=== PATIENT | female | born 1980 | race Caucasian/White ===

== ENCOUNTER 2018-01-09 00:42 | Inpatient (IN) | payer OTHER ==
--- NOTE | 2018-01-07 17:47 | History & Physical Pre-Op ---
General Information and HPI History of Present Illness: 3Patient is a 37-year-old 2 para 1 AB 1 chronic menorrhagia and pelvic pain secondary to large fibroid uterus presents today for open myomectomy. The patient desires future fertility. She has had a previous open myomectomy and understands that hysterectomy is a potential complication of uncontrolled bleeding. She will have ureteral stents placed preoperatively Dr. Higgins. Allergies/Medications Allergies: Coded Allergies: No Known Allergies (01/07/18) Home Med list No Known Home Medications Past History Surgical History Pertinent Surgical History: Florin-thyroidectomy, myomectomy Review of Systems Review of Systems Constitutional: Reports: malaise, weakness. EENTM: Reports: no symptoms. Cardiovascular: Reports: no symptoms. Respiratory: Reports: no symptoms. GI: Reports: abdominal pain. Genitourinary: Reports: see HPI. Musculoskeletal: Reports: no symptoms. Skin: Reports: no symptoms. Neurological/Psychological: Reports: no symptoms. Hematologic/Endocrine: Reports: no symptoms. Immunologic/Allergic: Reports: no symptoms. All Other Systems: Reviewed and Negative Exam & Diagnostic Data Last 24 Hrs of Vital Signs/I&O Intake & Output 01/07 1600 01/07 0800 01/07 0000 Intake Total Output Total Balance Patient 175 lb Weight Physical Exam: HEENT: Normocephalic atraumatic Chest: Clear to auscultation bilaterally Cardiovascular: Normal S1, S2 Abdomen: Soft nontender uterus palpable just below the umbilicus Pelvic: 16 week size uterus Extremities: No clubbing cyanosis or edema Neurologic nonfocal Assessment/Plan Assessment/Plan: Fibroid uterus, symptomatic Plan: Open myomectomy As Ranked By This Provider Problem List: 1. Fibroid (bleeding) (uterine)
[~2018-01-09] VITALS: Ht 160 cm; Wt 84.4 kg
--- NOTE | 2018-01-09 10:55 | Operative Report ---
Operative/Inv Procedure Report Surgery Date: 01/09/18 Name of Procedure: cystoscopy: bilateral stent insertion Pre-Operative Diagnosis: fibroids Post-Operative Diagnosis: same Estimated Blood Loss: scant Surgeon/Patternmaker Plaster [employer] Plastic: MD Ronaldo, Bradley-urology Anesthesia: general endotracheal tube Drains: 6 fr youngblood Specimens: ucx Complications: none Operative/Procedure Note Note: The patient was taken to the operating room and placed on the OR table in supine position. Timeout was performed, with the patient awake, to confirm identify, planned procedures, anesthesia, antibiotics and other pertinent rey-operative information. After adequate anesthesia, and IV antibiotics, the patient was placed in lithotomy Yellow-fin stirrups. She was then draped and prepped in the usual surgical fashion, including a vaginal prep. A 22 [place] Ze[place]ander cystoscope sheath with a 30 angle lens was inserted into the bladder without significant difficulty. The bladder was thoroughly and systematically examined, and was noted to be free of tumor, free of stone, free of endometriosis. Both ureteral orifices were in their orthotopic positions with clear reflux bilaterally. Under direct visualization the left orifice was intubated with a 5 [place] Zealander whistle-tip catheter, which was advanced easily into the left kidney pelvis. The right ureteral orifice was intubated with a second 5 [place] ureteral whistle tip catheter, and advanced into the right renal pelvis without difficulty. For identification purposes the blue marked stent went into the left kidney and the right ureteral stent was marked red. Urine culture was obtained and sent to pathology. The cystoscope was then removed leaving both stents in proper place. An 18 [place]ander Youngblood catheter was inserted draining clear fluid and 10 mL of sterile water was then placed in the balloon. The ends ureteral stents, which protruded externally, were taped to the Youngblood catheter in order to secure their position. The individual ureteral stents were then connected to their individual drainage devices. The patient tolerated the procedure well. All sponge needle and instrument count were correct at the end of this procedure. The patient was then placed in supine position with Venodyne's in place. At this point, Dr.Vander Bolaños was able to proceed with the patient's surgery. Discharge Disposition: proceed with Dr. Zaarte CC: Bradley Higgins MD
[2018-01-09 11:21] LABS: ABSOLUTE BASOPHIL COUNT 0 /CUMM (0.0-0.2); ABSOLUTE EOSINOPHIL COUNT 0.1 /CUMM (0.0-0.7); ABSOLUTE GRANULOCYTE CT 14.1 /CUMM (1.4-6.5); ABSOLUTE LYMPH COUNT 1.9 /CUMM (1.2-3.4); ABSOLUTE MONOCYTE COUNT 0.4 /CUMM (0.10-0.60); BASOPHIL % 0.1 % (0.0-2.0); EOSINOPHIL % 0.3 % (0-5); GRANULOCYTE % 85.9 % (42.2-75.2); HEMATOCRIT 24.7 % (37-47); MEAN CORPUSCULAR HGB 22.9 PG (27.0-31.0); MEAN CORPUSCULAR HGB CONC 32.3 G/DL (33.0-37.0); MEAN CORPUSCULAR VOLUME 70.7 FL (81.0-99.0); MEAN PLATELET VOLUME 8.8 FL (7.4-10.4); PLATELET COUNT 268 /CUMM (130-400); RBC DISTRIBUTION WIDTH 19.5 % (11.5-14.5); WHITE BLOOD CELL COUNT 16.4 /CUMM (4.8-10.8)
--- NOTE | 2018-01-09 15:14 | Operative Report ---
Operative/Inv Procedure Report Surgery Date: 01/09/18 Name of Procedure: Multiple myomectomies Pre-Operative Diagnosis: Fibroid uterus Post-Operative Diagnosis: Same Estimated Blood Loss: 650 Surgeon/Community Organization Worker: Erwin Mcneill MD,Sudhakar Cabezas MD Anesthesia: general endotracheal tube Operative/Procedure Note Note: The patient was brought to the operating room and placed on the OR table in dorsal supine position. She was underwent general anesthetic and was intubated successfully. Betadine boots were placed prior to induction of anesthesia. She was prepped and draped in usual sterile fashion and a Wells catheter was inserted into the bladder draining clear yellow urine. An incision was made in the skin through the old Pfannenstiel scar this was taken down to the layer of the fascia. Fascia was nicked in the midline and extended bilaterally. The rectus muscles were sharply dissected off the overlying fascia. Rectus muscles were and the peritoneal cavity was entered sharply. A large 16-18 week size uterus was palpable and brought through the abdominal incision. 167 cm fibroid was noted on the posterior wall and the uterus was globally globally enlarged to approximately 16 weeks gestation normal ovaries and fallopian tubes bilaterally. The bladder was adhesed to the lower uterine segment and this was taken down sharply. Posterior fibroid was injected with Pitressin along the incision line. It was incised with the electrocautery and shelled out completely sharply and bluntly. The uterine cavity was entered at this point. Through the uterine cavity was noted that there was a large fibroid palpable. An incision was made in the fundus of the uterus anteriorly posteriorly and a large 12 cm fibroid was shelled out through different layers. There was bleeding as this was shelled out and layers of tissue were opened and cut. Once the fibroid was removed we could see normal uterine tissue. The layers of fibrosis tissue were excised as well. The remaining uterine wall was closed in layers and there were multiple kexhad-bo-phzdd sutures of 0 Polysorb used for hemostasis. Posterior wall was closed in similar fashion. The excess uterine tissue was excised and at the end of the case uterus was now approximately 12 weeks in size. Seprafilm was placed throughout the surgical field and the uterus was placed back into the abdominal cavity after copious irrigation was performed. Rectus muscles were reapproximated with one mattress suture of 0 Polysorb. The fascia was closed with #1 Polysorb in a running nonlocking fashion. Subcutaneous tissues were irrigated were needed and coagulated. The skin was closed using karan and dry sterile dressing was applied to the wound patient was then awakened and sent to recovery in good condition. All needle, sponge, and some counts were correct at the end of the procedure 2.
[2018-01-09 16:00] VITALS: BP 98/58
[2018-01-09 17:39] VITALS: BP 100/62
[2018-01-09 18:10] LABS: ABSOLUTE BASOPHIL COUNT 0 /CUMM (0.0-0.2); ABSOLUTE EOSINOPHIL COUNT 0 /CUMM (0.0-0.7); ABSOLUTE GRANULOCYTE CT 17.7 /CUMM (1.4-6.5); ABSOLUTE LYMPH COUNT 0.6 /CUMM (1.2-3.4); BASOPHIL % 0 % (0.0-2.0); EOSINOPHIL % 0 % (0-5); GRANULOCYTE % 91.6 % (42.2-75.2); HEMATOCRIT 23.1 % (37-47); MEAN CORPUSCULAR HGB 22.8 PG (27.0-31.0); MEAN CORPUSCULAR HGB CONC 31.8 G/DL (33.0-37.0); MEAN CORPUSCULAR VOLUME 71.6 FL (81.0-99.0); MEAN PLATELET VOLUME 8.4 FL (7.4-10.4); PLATELET COUNT 235 /CUMM (130-400); RBC DISTRIBUTION WIDTH 19.8 % (11.5-14.5); RED BLOOD CELL CT 3.23 /CUMM (4.20-5.40); WHITE BLOOD CELL COUNT 19.4 /CUMM (4.8-10.8)
[2018-01-09 19:30] VITALS: BP 114/66
[2018-01-09 21:30] VITALS: BP 110/70
[2018-01-09 21:50] LABS: ABSOLUTE BASOPHIL COUNT 0 /CUMM (0.0-0.2); ABSOLUTE EOSINOPHIL COUNT 0 /CUMM (0.0-0.7); ABSOLUTE GRANULOCYTE CT 8.3 /CUMM (1.4-6.5); ABSOLUTE LYMPH COUNT 0.5 /CUMM (1.2-3.4); ABSOLUTE MONOCYTE COUNT 0.7 /CUMM (0.10-0.60); BASOPHIL % 0 % (0.0-2.0); EOSINOPHIL % 0 % (0-5); GRANULOCYTE % 87.3 % (42.2-75.2); MEAN CORPUSCULAR HGB 22.7 PG (27.0-31.0); MEAN CORPUSCULAR HGB CONC 32.2 G/DL (33.0-37.0); MEAN CORPUSCULAR VOLUME 70.7 FL (81.0-99.0); MEAN PLATELET VOLUME 8.6 FL (7.4-10.4); PLATELET COUNT 212 /CUMM (130-400); RBC DISTRIBUTION WIDTH 19.4 % (11.5-14.5); WHITE BLOOD CELL COUNT 9.5 /CUMM (4.8-10.8)
[2018-01-09 22:07] LABS: HEMATOCRIT 19.8 % (37-47)
--- NOTE | 2018-01-09 22:50 | PN- OBGYN ---
Surgical Brief Attending Note Brief Attending Note: Seen and evaluated secondary to hematocrit of 19.8 Dr Booker signed this patient out to me at appx 1700 Reviewed patient chart as well. Patient is without complaint and other than being hungry states she is okay. Appears pale. T97.9 Pulse 70 and BP 110/70 Abdomen is soft with incisional tenderness and abdominal binder on. Minimal blood on vaginal pad. Wound dressing clean Extremities with alps on. Wells draining clear urine. Pod#0 s/p repeat multiple myomectomy on this patient with abnormal uterine bleeding-leiomyoma and chronic anemia. Heme. At present her hct today went from 24.7 to 23.1 to 19.8 over 9 hours. Her platelets are 212 at present. In my opinion this is surgical blood loss and not active bleeding. Her MCV is 70's. I reviewed with the patient the benefit of transfusion should she become unstable (resting tachycardia, dyspnea, decreased urine output, chest pain and or hypotension). Other options would be IV Venofer however that wont increase her HCT in the short term but would reduce her need for oral iron. She is declining transfusion at present but understands if tomorrow she is orthostatic she would need same. She will think about the transfusion though. CBC for 0600 on 01/11/20 and I will sign out to Dr Booker in the am. Alps for vte prophylaxis. She is tolerating clear liquids at present without nausea Treatment goals reviewed with patient and she shows understanding. Reviewed with Yue VIG[facility] on 2NA. They were informed to contact me with any change in patient status.
[2018-01-09 23:08] VITALS: BP 120/68
[2018-01-10] VITALS (9 sets, daily range): BP systolic 118–132; BP diastolic 68–82
[2018-01-10 09:24] LABS: ABSOLUTE BASOPHIL COUNT 0 /CUMM (0.0-0.2); ABSOLUTE EOSINOPHIL COUNT 0 /CUMM (0.0-0.7); ABSOLUTE LYMPH COUNT 0.9 /CUMM (1.2-3.4); BASOPHIL % 0 % (0.0-2.0); EOSINOPHIL % 0 % (0-5); MEAN CORPUSCULAR HGB 22.9 PG (27.0-31.0)
--- NOTE | 2018-01-10 09:43 | PN- General Surgery ---
Subjective Subjective: pt feels lightheaded but refuses transfusion at this time; denies flatus Objective Vital Signs and I&Os Vital Signs Date Time Temp Pulse Resp B/P B/P Pulse O2 O2 Flow FiO2 Mean Ox Delivery Rate 01/10 0615 97.6 100 20 132/74 93 Room Air 01/10 0600 98.5 100 20 120/78 01/10 0407 98.5 100 20 120/78 95 Room Air 01/10 0400 98.5 100 20 120/78 01/10 0210 97.9 105 20 120/82 94 Room Air 01/10 0200 97.9 105 20 120/80 01/10 0000 98.5 90 20 120/68 01/09 2308 98.5 90 20 120/68 97 Room Air 01/09 2130 97.9 70 20 110/70 99 Room Air 01/09 1930 98.0 73 20 114/66 98 Room Air 01/09 1739 94.0 77 20 100/62 99 Room Air 01/09 1600 Room Air 01/09 1600 95.6 85 20 98/58 01/09 1600 95.6 85 20 98/58 96 Room Air Intake & Output 01/10 1600 01/10 0800 01/10 0000 01/09 1600 01/09 0800 01/09 0000 Intake Total 1240 900 Output Total 550 350 Balance 690 550 Intake, IV 1000 500 Intake, Oral 240 400 Output, Urine 550 350 Patient 183 lb 161 lb Weight Weight Bed scale Measurement Method Physical Exam: Abd: soft NTND; incision c/d/i Ext NT Assessment/Plan Assessment/Plan s/p myomectomies pod1 with low H&H secondarty to intraop blood loss Priscilla d/c'd advance diet as kvng increase activity awaiting CBC encouraged pt to accept transfusion po pain meds Core Measures Venous Thromboembolism VTE Risk Factors Surgery No Mechanical VTE Prophylaxis d/t N/A MechProphylax Ordered No VTE Pharm Prophylaxis d/t Bleeding (Active)
[2018-01-10 09:44] LABS: ABSOLUTE GRANULOCYTE CT 4.8 /CUMM (1.4-6.5); ABSOLUTE MONOCYTE COUNT 0.7 /CUMM (0.10-0.60); GRANULOCYTE % 74.6 % (42.2-75.2); MEAN CORPUSCULAR HGB CONC 32.3 G/DL (33.0-37.0); MEAN CORPUSCULAR VOLUME 70.8 FL (81.0-99.0); MEAN PLATELET VOLUME 8.9 FL (7.4-10.4); PLATELET COUNT 187 /CUMM (130-400); RBC DISTRIBUTION WIDTH 19.9 % (11.5-14.5); RED BLOOD CELL CT 2.36 /CUMM (4.20-5.40); WHITE BLOOD CELL COUNT 6.4 /CUMM (4.8-10.8)
[2018-01-10 09:50] LABS: HEMATOCRIT 16.7 % (37-47)
--- NOTE | 2018-01-10 09:54 | PN- General Surgery ---
Subjective Subjective: same Review of Systems: same Objective Vital Signs and I&Os Vital Signs Date Time Temp Pulse Resp B/P B/P Pulse O2 O2 Flow FiO2 Mean Ox Delivery Rate 01/10 0615 97.6 100 20 132/74 93 Room Air 01/10 0600 98.5 100 20 120/78 01/10 0407 98.5 100 20 120/78 95 Room Air 01/10 0400 98.5 100 20 120/78 01/10 0210 97.9 105 20 120/82 94 Room Air 01/10 0200 97.9 105 20 120/80 09/ 0000 98.5 90 20 120/68 01/09 2308 98.5 90 20 120/68 97 Room Air 01/09 2130 97.9 70 20 110/70 99 Room Air 01/09 1930 98.0 73 20 114/66 98 Room Air 01/09 1739 94.0 77 20 100/62 99 Room Air 01/09 1600 Room Air 01/09 1600 95.6 85 20 98/58 01/09 1600 95.6 85 20 98/58 96 Room Air Intake & Output 01/10 1600 01/10 0800 01/10 0000 01/09 1600 01/09 0800 01/09 0000 Intake Total 1240 900 Output Total 550 350 Balance 690 550 Intake, IV 1000 500 Intake, Oral 240 400 Output, Urine 550 350 Patient 183 lb 161 lb Weight Weight Bed scale Measurement Method Physical Exam: same H/H = 5.4/16.7 Assessment/Plan Assessment/Plan post op bleed rec transfusiion pt now accepts transfusion Problem List: 1. Fibroid (bleeding) (uterine) Core Measures Venous Thromboembolism VTE Risk Factors Surgery No Mechanical VTE Prophylaxis d/t N/A MechProphylax Ordered No VTE Pharm Prophylaxis d/t Bleeding (Active)
[2018-01-11 01:32] LABS: ABSOLUTE BASOPHIL COUNT 0 /CUMM (0.0-0.2); ABSOLUTE EOSINOPHIL COUNT 0 /CUMM (0.0-0.7); ABSOLUTE GRANULOCYTE CT 6.4 /CUMM (1.4-6.5); ABSOLUTE LYMPH COUNT 1.4 /CUMM (1.2-3.4); ABSOLUTE MONOCYTE COUNT 0.8 /CUMM (0.10-0.60); BASOPHIL % 0.1 % (0.0-2.0); EOSINOPHIL % 0 % (0-5); HEMATOCRIT 21.1 % (37-47); MEAN CORPUSCULAR HGB CONC 33.9 G/DL (33.0-37.0); MEAN PLATELET VOLUME 8.7 FL (7.4-10.4); PLATELET COUNT 167 /CUMM (130-400); RBC DISTRIBUTION WIDTH 20.7 % (11.5-14.5); WHITE BLOOD CELL COUNT 8.7 /CUMM (4.8-10.8)
[2018-01-11 01:38] LABS: MEAN CORPUSCULAR HGB 25.5 PG (27.0-31.0); MEAN CORPUSCULAR VOLUME 75.3 FL (81.0-99.0)
[2018-01-11 06:05] VITALS: BP 120/84
[2018-01-11 08:31] LABS: ABSOLUTE BASOPHIL COUNT 0 /CUMM (0.0-0.2); ABSOLUTE EOSINOPHIL COUNT 0 /CUMM (0.0-0.7); ABSOLUTE GRANULOCYTE CT 6.2 /CUMM (1.4-6.5); ABSOLUTE LYMPH COUNT 1.7 /CUMM (1.2-3.4); ABSOLUTE MONOCYTE COUNT 0.7 /CUMM (0.10-0.60); BASOPHIL % 0 % (0.0-2.0); EOSINOPHIL % 0.1 % (0-5); GRANULOCYTE % 72.1 % (42.2-75.2); HEMATOCRIT 20.6 % (37-47); MEAN CORPUSCULAR HGB 25.5 PG (27.0-31.0); MEAN CORPUSCULAR HGB CONC 33.9 G/DL (33.0-37.0); MEAN CORPUSCULAR VOLUME 75.2 FL (81.0-99.0); MEAN PLATELET VOLUME 8.7 FL (7.4-10.4); PLATELET COUNT 156 /CUMM (130-400); RBC DISTRIBUTION WIDTH 20.7 % (11.5-14.5); RED BLOOD CELL CT 2.74 /CUMM (4.20-5.40); WHITE BLOOD CELL COUNT 8.5 /CUMM (4.8-10.8)
[2018-01-11] MEDS ORDERED: DOCUSATE SODIU100 M3 PO (09:11)
[2018-01-11] MEDS ORDERED: HYDROCODON-ACE1 EAC2 PO (09:11)
[2018-01-11] MEDS ORDERED: FERROUS SULFAT325 M2 PO (09:11)
[2018-01-11] MEDS ORDERED: IBUPROFEN800 M1 PO (09:11)
--- NOTE | 2018-01-11 09:15 | Surgical Discharge Summary ---
Visit Information Visit Dates Admission Date: 01/09/18 Discharge Date: 01/11/18 History of Present Illness Chief Complaint: Fibroid uterus Medical History Blood Transfusion Hx: No Neurological: NONE EENT: NONE Cardiovascular: NONE Respiratory: NONE Gastrointestinal: NONE Hepatic: NONE Renal: NONE Musculoskeletal: NONE Psychiatric: NONE Endocrine: NONE Blood Disorders: anemia Cancer(s): NONE SAS ANALYST/Reproductive: fibroid History of MRSA: No History of VRE: No History of CDIFF: No Isolation History: Standard Surgical History Pertinent Surgical History: Florin-thyroidectomy myomectomy Psychosocial History Where Do You Live? Home Who Do You Live With? Patient/Self What is Your Primary Language? Samoan Review of Systems: Anemia Hospital Course Course Attending Physician: Sudhakar Bradley MD Primary Care Physician: Simran Valencia MD Hospital Course: The patient was admitted and underwent multiple myomectomies without complication. Blood loss during surgery was approximately 650 cc. She was sent to recovery in good condition. Postoperative day #1 her H&H returned low at 6.5 -5.4. She was counseled for the need for transfusion of packed red blood cells and was resistant at first but eventually agreed to the transfusion. She was transfused 2 units of packed red blood cells and felt better. Her follow-up hemoglobin was 7.1 and 7.0. Postoperative day #2. She has now passed flatus and tolerating a full diet. She will have regular diet for lunch and then be discharged home. Allergies: Coded Allergies: No Known Allergies (01/07/18) Disposition Summary Disposition Principal Diagnosis: Fibroid uterus Additional Diagnosis: Anemia Discharge Disposition: home or self care Discharge Instructions General Discharge Information Code Status: Full Code Patient's Diet: Regular Patient's Activity: Pelvic rest Follow-Up Instructions/Appts: In 4 days for staple removal Medications at Discharge Discharge Medications: Start taking the following new medications: Ferrous Sulfate (Ferrous Sulfate) 325 MG (65 MG IRON) TABLET.DR 325 Milligram ORAL THREE TIMES DAILY Qty = 60 No Refills Ibuprofen (Ibuprofen) 800 MG TABLET 800 Milligram ORAL EVERY SIX HOURS NEEDED as needed for post op pain Qty = 36 Refills = 1 Hydrocodone/Acetaminophen (Hydrocodon-Acetaminophen 5-325) 5 MG-325 MG TABLET 1 Tablet ORAL EVERY 4 HOURS NEEDED as needed for post op pain Qty = 16 No Refills Docusate Sodium (Docusate Sodium) 100 MG CAPSULE 100 Milligram ORAL TWICE DAILY Qty = 60 Refills = 1
== END 2018-01-11 11:55 | DRG 519 ==
LOC: SDA 00:42 → 2NA 00:42 → ENRESERV 12:58 → EDBEDREQ 13:19 → ENTRNSPT 15:09 → EDTRNSPT 15:25 → EDTRNSPTSTS 15:25 → 2NA 15:31 → CMPTRNSPT 15:37 → ENPENDDIS 01-11 09:11 → ENTRNSPT 01-11 11:44 → EDTRNSPTSTS 01-11 11:50 → EDTRNSPT 01-11 11:50 → 2NA 01-11 11:55 → CMPTRNSPT 01-11 11:58
PROVIDERS: Obstetrics & Gynecology
PROC: 0UB90ZZ Excision of Uterus, Open Approach (ICD-10-PCS; principal; 2018-01-09)
PROC: 0T788DZ Dilation of Bilateral Ureters with Intraluminal Device, Via Natural or Artificial Opening Endoscopic (ICD-10-PCS; 2018-01-09)
PROC: 3E0T3BZ Introduction of Anesthetic Agent into Peripheral Nerves and Plexi, Percutaneous Approach (ICD-10-PCS; 2018-01-09)
PROC: 30233N1 Transfusion of Nonautologous Red Blood Cells into Peripheral Vein, Percutaneous Approach (ICD-10-PCS; 2018-01-10)
DX: D25.9 Leiomyoma of uterus, unspecified (principal); N99.61 Intraoperative hemorrhage and hematoma of a genitourinary system organ or structure complicating a genitourinary system procedure; N92.0 Excessive and frequent menstruation with regular cycle
CPT/HCPCS: 2NAP; 36415; 81025; 86920; 87086; 88305; J0131; J0694; J1170; J1200; J1885; J2405; J7120; P9016